=== PATIENT | male | born 1990 | race Caucasian/White ===

== ENCOUNTER 2018-08-09 16:04 | Emergency (ER) | payer SELFPAY ==
[2018-08-09] MEDS ORDERED: NA CHLORIDE 0.9% 1,000 ML ONE (17:02)
[2018-08-09 17:18] LABS: Absolute Lymphocytes (CBC) 1.5 K/uL (0.7-4.9); Absolute Monocytes 0.9 K/uL (0.1-1.3); Basophils % 0.4 % (0-1.3); Eosinophils % 0.6 % (0-4.4); Hematocrit 42.9 % (39.6-49.0); Lymphocytes % 12.3 % (15.3-44.8); MCH 32.3 pg (27.0-35.0); MCV 94.7 fL (80-100); Monocytes % 7.2 % (3.3-12.3); RBC Red Blood Cell Count 4.53 M/uL (4.33-5.43)
[2018-08-09 17:28] LABS: Potassium 3.6 mmol/L (3.5-5.1)
--- NOTE | 2018-08-09 17:50 | RAD REPORT ---
EXAM DESCRIPTION: US - Renal Ultrasound-Complete - 08/09/2018 5:38 pm CLINICAL HISTORY: difficulty urinating COMPARISON: No comparisons FINDINGS: Both kidneys are normal in size, shape and echotexture. The right kidney measures 11.5 x 6.0 x 5.8 cm. No hydronephrosis, focal mass or perinephric fluid. The left kidney measures 11.8 x 5.4 x 4.8 cm. No hydronephrosis, focal mass or perinephric fluid. The urinary bladder is incompletely distended without gross abnormality seen. IMPRESSION: Unremarkable renal sonogram.
--- NOTE | 2018-08-09 17:51 | RAD REPORT ---
EXAM DESCRIPTION: US - Scrotum Testicles - 08/09/2018 5:38 pm CLINICAL HISTORY: PAIN COMPARISON: No comparisons FINDINGS: The right testicle 4.0 x 3.6 x 2.1 cm. No intratesticular masses or evidence of testicular torsion. The left testicle 4.0 x 3.0 x 2.2 cm. No intratesticular masses or evidence of testicular torsion. Both epididymides are normal in size and appearance. No pathologic fluid collections. IMPRESSION: Unremarkable study.
--- NOTE | 2018-08-09 18:30 | EDPHYS ---
Physician Documentation [facility] Name: Byron Sykes Age: 28 yrs Sex: Male : 1990 Arrival Date: 08/09/2018 Time: 16:05 Bed 8 Private MD: ED Physician Ignacio Lowery HPI: 08/09 17:00 This 28 yrs old Male presents to ER via Ambulatory with complaints of cp Testicular Swelling, Urinary Problem. 17:00 The patient presents with scrotal pain, swelling, that is moderate, of the head of cp penis and shaft of penis, tenderness, urinary symptoms, difficulty voiding. Historical: - Allergies: 16:15 No Known Allergies; aj1 - Home Meds: 16:15 None [Active]; aj1 - PMHx: 16:15 None; aj1 - PSHx: 16:15 None; aj1 - Immunization history:: Flu vaccine is not up to date. - Social history:: Smoking status: Patient/guardian denies using tobacco. - Ebola Screening: : Patient denies travel to an Ebola-affected area in the 21 days before illness onset. ROS: 17:10 Constitutional: Negative for body aches, chills, fever, poor PO intake. cp 17:10 Eyes: Negative for injury, pain, redness, and discharge. cp 17:10 Cardiovascular: Negative for chest pain. 17:10 Respiratory: Negative for cough, shortness of breath, wheezing. 17:10 Abdomen/GI: Negative for abdominal pain, nausea, vomiting, and diarrhea. 17:10 Back: Negative for pain at rest, pain with movement, radiated pain. 17:10 : Positive for difficulty urinating, penile pain, testicular pain 17:10 All other systems are negative. Exam: 17:15 ECG was reviewed by the Attending Physician. cp 17:17 Constitutional: The patient appears in no acute distress, alert, awake, non-toxic, well cp developed, well nourished, obese. 17:17 Head/Face: Normocephalic, atraumatic. cp 17:17 Eyes: Periorbital structures: appear normal, Conjunctiva: normal, no exudate, no injection, Sclera: no appreciated abnormality, Lids and lashes: appear normal, bilaterally. 17:17 ENT: External ear(s): are unremarkable, Nose: is normal, Mouth: Lips: moist, Oral mucosa: pink and intact, moist, Posterior pharynx: is normal, airway is patent, no erythema, no exudate, Voice: is normal. 17:17 Neck: ROM/movement: is normal, is supple, without pain, no range of motions limitations, no nuchal rigidity. 17:17 Chest/axilla: Inspection: normal. 17:17 Cardiovascular: Rate: tachycardic, Rhythm: regular. 17:17 Respiratory: the patient does not display signs of respiratory distress, Respirations: normal, no use of accessory muscles, no retractions, no splinting, no tachypnea, Breath sounds: are clear throughout, no decreased breath sounds, no stridor, no wheezing. 17:17 Abdomen/GI: Inspection: obese Palpation: abdomen is soft and non-tender, in all quadrants. 17:17 Back: CVA tenderness, is absent. 17:17 : Male external genitalia: Circumcision noted. erythema, of the head of penis and shaft of penis is seen, that is moderate, swelling: penile, that is mild, tenderness, of the head of penis, shaft of penis and scrotum is noted, that is mild, noted exudate at head of penis. Vital Signs: 16:15 BP 158 / 108; Pulse 131; Resp 20; Temp 98.8; Pulse Ox 97% on R/A; Weight 158.76 kg (R); aj1 Height 6 ft. 0 in. (182.88 cm) (R); Pain 8/10; 19:20 BP 158 / 97; Pulse 111; Resp 19; Pulse Ox 98% on R/A; lp1 16:15 Body Mass Index 47.47 (158.76 kg, 182.88 cm) aj1 MDM: 16:39 Patient medically screened. cp 17:00 Differential diagnosis: UTI, urinary retention, prostatitis, urethritis, STD, tinea cp cruris, cutaneous candidiasis. 18:30 Data reviewed: vital signs, nurses notes, lab test result(s), radiologic studies, cp ultrasound, and as a result, I will discharge patient. 08/09 16:51 Order name: CBC with Diff; Complete Time: 17:57 cp 08/09 17:57 Interpretation: Normal except: WBC 12.5; VIPUL% 79.5; LYM% 12.3; NEUT A 10.0. cp 08/09 16:51 Order name: BMP; Complete Time: 17:57 cp 08/09 17:57 Interpretation: Normal except: GLUC 113; BUN 20; GFR 73. cp 08/09 16:51 Order name: Urine Microscopic Only cp 08/09 16:51 Order name: US Scrotum Testicles; Complete Time: 17:57 cp 08/09 19:28 Order name: Urine Dipstick--Ancillary (enter results) ms 08/09 19:29 Order name: Urine Dipstick-Ancillary EDMS 08/09 16:51 Order name: Urine Dipstick-Ancillary (obtain specimen); Complete Time: 19:20 cp 08/09 16:51 Order name: IV; Complete Time: 17:03 cp 08/09 16:51 Order name: EKG; Complete Time: 16:52 cp 08/09 16:54 Order name: Renal Ultrasound-Complete; Complete Time: 17:57 EDIL 08/09 16:51 Order name: EKG - Nurse/Tech; Complete Time: 17:10 cp EC:15 Rate is 114 beats/min. Rhythm is regular. NM interval is normal. QRS interval is cp normal. QT interval is normal. Interpreted by me. Reviewed by me. Administered Medications: 17:03 Drug: NS 0.9% 1000 ml Route: IV; Rate: 1 bolus; Site: right antecubital; sv 18:00 Follow up: Response: No adverse reaction; IV Status: Completed infusion; IV Intake: sv 1000ml 18:44 Drug: Rocephin - (cefTRIAXone) 1 grams {Note: given IVP over 3 minutes..} Route: IVPB; sv Infused Over: 30 mins; Site: right antecubital; 18:47 Follow up: Response: No adverse reaction; IV Status: Completed infusion; IV Intake: 10mlsv 18:48 Drug: Zithromax 1 grams Route: PO; sv 19:01 Follow up: Response: No adverse reaction sv Disposition: 08/10 08:27 Co-signature as Attending Physician, Ignacio Lowery MD I agree with the assessment and claritza plan of care. Disposition: 08/09/18 18:30 Discharged to Home. Impression: Urethritis and urethral syndrome. - Condition is Stable. - Discharge Instructions: Urethritis, Adult. - Prescriptions for Acyclovir 200 mg Oral Capsule - take 1 capsule by ORAL route 5 times per day; 50 capsule. Clotrimazole 1 % Topical Cream - Apply to affected area 1 application by TOPICAL route every 12 hours for 10 days apply as directed to penis and genitals; 30 gram. Doxycycline Monohydrate 100 mg Oral Tablet - take 1 tablet by ORAL route every 12 hours for 10 days; 20 tablet. - Work release form, Medication Reconciliation Form, Thank You Letter, Antibiotic Education, Prescription Opioid Use form. - Follow up: Isaac Espinal MD; When: 1 week; Reason: Recheck today's complaints. - Problem is new. - Symptoms have improved. Signatures: Dispatcher [employer] EDIL Priti Vincent RN RN aj1 Emma Lanier RN RN Ignacio Vázquez MD MD cha Pena, Laura RN RN lp1 Ignacio Gonzales PA PA cp Corrections: (The following items were deleted from the chart) 08/09 16:54 16:52 [employer][email or web address].[email or web address] ordered. [facility] 19:42 18:30 08/09/2018 18:30 Discharged to Home. Impression: Urethritis and urethral lp1 syndrome. Condition is Stable. Forms are Medication Reconciliation Form, Thank You Letter, Antibiotic Education, Prescription Opioid Use. Follow up: Isaac Espinal; When: 1 week; Reason: Recheck today's complaints. Problem is new. Symptoms have improved. cp
--- NOTE | 2018-08-09 18:30 | ER ---
Nurse's Notes [facility] Name: Byron Sykes Age: 28 yrs Sex: Male : 1990 Arrival Date: 08/09/2018 Time: 16:05 Bed 8 Private MD: Diagnosis: Urethritis and urethral syndrome Presentation: 08/09 16:11 Presenting complaint: Patient states: Testicular swelling that comes and goes since aj1 yesterday. He was seen in the ER at [place] for the same complaint, they told him it was from sweating too much, but now his swelling is worse. Patient reports that he is also having trouble urinating, states it is difficult to urinate because it feels like there is a lot of pressure. Transition of care: patient was not received from another setting of care. Onset of symptoms was August 08, 2018. Risk Assessment: Do you want to hurt yourself or someone else? Patient reports no desire to harm self or others. Initial Sepsis Screen: Does the patient meet any 2 criteria? HR > 90 bpm. No. Patient's initial sepsis screen is negative. Does the patient have a suspected source of infection? No. Patient's initial sepsis screen is negative. Care prior to arrival: None. 16:11 Method Of Arrival: Ambulatory aj1 16:11 Acuity: FELICITAS 2 aj1 Triage Assessment: 16:15 General: Appears in no apparent distress. uncomfortable, Behavior is calm, cooperative, aj1 appropriate for age. Pain: Complains of pain in pelvis Pain currently is 8 out of 10 on a pain scale. Neuro: Level of Consciousness is awake, alert, obeys commands. Cardiovascular: Patient's skin is warm and dry. Respiratory: Airway is patent Respiratory effort is even, unlabored, Respiratory pattern is regular, symmetrical. Historical: - Allergies: 16:15 No Known Allergies; aj1 - Home Meds: 16:15 None [Active]; aj1 - PMHx: 16:15 None; aj1 - PSHx: 16:15 None; aj1 - Immunization history:: Flu vaccine is not up to date. - Social history:: Smoking status: Patient/guardian denies using tobacco. - Ebola Screening: : Patient denies travel to an Ebola-affected area in the 21 days before illness onset. Screenin:30 Abuse screen: Denies threats or abuse. Denies injuries from another. Nutritional sv screening: No deficits noted. Tuberculosis screening: No symptoms or risk factors identified. Fall Risk None identified. Assessment: 16:29 General: Appears in no apparent distress. uncomfortable, obese, well developed, sv Behavior is calm, cooperative, appropriate for age. Pain: Complains of pain in pelvis Pain currently is 8 out of 10 on a pain scale. Neuro: Level of Consciousness is awake, alert, obeys commands, Oriented to person, place, time, situation, Moves all extremities. Full function Gait is steady, Speech is normal. Respiratory: Respiratory effort is even, unlabored, Respiratory pattern is regular, symmetrical. Derm: Skin is pink, warm \T\ dry. Musculoskeletal: Range of motion: intact in all extremities. 16:45 : Blisters noted Lesions noted at urinary meatus on penis Redness noted to penile sv head. 18:40 Reassessment: Patient appears in no apparent distress at this time. No changes from sv previously documented assessment. Patient and/or family updated on plan of care and expected duration. Pain level reassessed. Patient is alert, oriented x 3, equal unlabored respirations, skin warm/dry/pink. Vital Signs: 16:15 BP 158 / 108; Pulse 131; Resp 20; Temp 98.8; Pulse Ox 97% on R/A; Weight 158.76 kg (R); aj1 Height 6 ft. 0 in. (182.88 cm) (R); Pain 8/10; 19:20 BP 158 / 97; Pulse 111; Resp 19; Pulse Ox 98% on R/A; lp1 16:15 Body Mass Index 47.47 (158.76 kg, 182.88 cm) aj1 ED Course: 16:05 Patient arrived in ED. rg4 16:14 Triage completed. aj1 16:15 Arm band placed on Patient placed in an exam room. aj1 16:18 Emma Lanier, RN is Primary Nurse. sv 16:30 Awaiting ED provider evaluation. sv 16:30 Patient has correct armband on for positive identification. Placed in gown. Bed in low sv position. Call light in reach. playground monitor on. Pulse ox on. NIBP on. Door closed. Warm blanket given. Head of bed elevated. 16:39 Ignacio Gonzales PA is PHCP. cp 16:39 Ignacio Lowery MD is Attending Physician. cp 17:00 Initial lab(s) drawn, by me, sent to lab. Inserted saline lock: 20 gauge in right sv antecubital area, using aseptic technique. Blood collected. Flushed right antecubital with 5 ml normal saline. 17:10 Patient taken to ultrasound. via wheelchair. aa4 17:38 Ultrasound completed. Patient tolerated well. Patient moved back from ultrasound. aa4 17:38 US Scrotum Testicles In Process Unspecified. EDMS 17:38 Renal Ultrasound-Complete In Process Unspecified. EDMS 18:27 Isaac Espinal MD is Referral Physician. cp 19:04 Report given to Risa RN and Lyla RN. sv 19:07 Primary Nurse role handed off by Emma Lanier RN sv 19:21 No provider procedures requiring assistance completed. lp1 19:25 IV discontinued, No redness/swelling at site. Pressure dressing applied. lp1 19:27 Urine collected: clean catch specimen, iris colored. mh5 19:27 Urine Microscopic Only Sent. mh5 Administered Medications: 17:03 Drug: NS 0.9% 1000 ml Route: IV; Rate: 1 bolus; Site: right antecubital; sv 18:00 Follow up: Response: No adverse reaction; IV Status: Completed infusion; IV Intake: sv 1000ml 18:44 Drug: Rocephin - (cefTRIAXone) 1 grams {Note: given IVP over 3 minutes..} Route: IVPB; sv Infused Over: 30 mins; Site: right antecubital; 18:47 Follow up: Response: No adverse reaction; IV Status: Completed infusion; IV Intake: 10mlsv 18:48 Drug: Zithromax 1 grams Route: PO; sv 19:01 Follow up: Response: No adverse reaction sv Intake: 18:00 IV: 1000ml; Total: 1000ml. sv 18:47 IV: 10ml; Total: 1010ml. sv Outcome: 18:30 Discharge ordered by . cp 19:25 Discharged to home ambulatory, with family. lp1 19:25 Condition: good 19:25 Discharge instructions given to patient, Instructed on discharge instructions, follow up and referral plans. medication usage, Demonstrated understanding of instructions, follow-up care, medications, Prescriptions given X 3. 19:30 Patient left the ED. lp1 Signatures: Dispatcher [employer] EDPriti Gee RN RN aj1 Emma Lanier RN RN Delmy España aa4 Risa Forde RN RN lp1 Ignacio Gonzales PA PA cp Garcia, Rubi 4 Altagrac[facility] Corrections: (The following items were deleted from the chart) 19: 19:41 IV discontinued, No redness/swelling at site. Pressure dressing applied, lp1 lp1 19:42 19:42 Patient left the ED. lp1 lp1
[2018-08-09] MEDS ORDERED: CEFTRIAXONE/SWI 1gm 1 GM/10 ML SYR ONE (18:46)
[2018-08-09] MEDS ORDERED: AZITHROMYCIN 250 MG TAB ONE (18:46)
[2018-08-09 19:54] LABS: Urine Amorphous Sediment TRACE /HPF (NONE SEEN); Urine Bacteria <20 /HPF (NONE SEEN); Urine Culture Reflex Order NOT NEEDED; Urine Mucus 2+ /HPF (NONE SEEN); Urine RBC <5 /HPF (NONE SEEN)
[2018-08-09 20:24] LABS: Urine Blood NEGATIVE (NEG); Urine Glucose NEGATIVE (NEG); Urine Protein 1+ (NEG); Urine pH 5.5 (5.0-7.0)
--- NOTE | 2018-08-10 07:35 | EKG ---
Test Date: 2018-08-09 Test Time: 17:10:44 Rug Measurer: [place] MEASUREMENT RESULTS: Intervals: Rate: 114 TX: 144 QRSD: 94 QT: 338 QTc: 465 [place]: P: 56 TX: 144 QRS: 53 T: 61 INTERPRETIVE STATEMENTS: Sinus tachycardia Otherwise normal ECG No previous ECG available for comparison Electronically Signed On 08-10-18 07:33:50 INPATIENT SERVICES RN by Osmany Schroeder
== END 2018-08-09 19:42 | disposition home or self-care (01) ==
LOC: ER 16:04
DX: N34.2 Other urethritis (principal); N34.3 Urethral syndrome, unspecified
CPT/HCPCS: 36415; 76770; 76870; 80048; 81003; 81015; 85025; 93005; 96361; 96374; 99285; J0696; J7030